=== PATIENT | female | born 1995 | race Caucasian/White ===

== ENCOUNTER 2023-12-06 19:12 | Emergency (ER) | payer SELFPAY ==
[~2023-12-06] VITALS: Ht 162.5 cm; Wt 47.6 kg
[2023-12-06] MEDS ORDERED: BUSPIRONE10 MG PO (19:42)
[2023-12-06] MEDS ORDERED: PRISTIQ ER25 MG PO (19:42)
[2023-12-06 20:20] LABS: BILIRUBIN Negative (Negative); BLOOD Negative (Negative); CLARITY Clear (Clear); COLOR Yellow (Yellow); GLUCOSE Negative (Negative); KETONE Negative (Negative); LEUKO ESTERASE Negative (Negative); NITRITE Negative (Negative); SPECIFIC GRAVITY 1.015 (1.001-1.030); UROBILINOGEN 0.2 E.U./dl (0.0-1.0)
[2023-12-06 20:26] LABS: BACTERIA 4+
[2023-12-06] MEDS ORDERED: VIBRAMYCIN100 MG PO (20:41)
[2023-12-06] MEDS ORDERED: Lidocaine Hydrochloride 2 ML IV ONE (21:00)
== END 2023-12-06 21:01 | disposition home or self-care (01) ==
LOC: ED 19:12
PROVIDERS: Physician Assistant Medical
DX: N89.8 Other specified noninflammatory disorders of vagina (principal); Z20.2 Contact with and (suspected) exposure to infections with a predominantly sexual mode of transmission; R10.2 Pelvic and perineal pain; Z79.899 Other long term (current) drug therapy

== ENCOUNTER 2024-01-10 10:30 | Emergency (ER) | payer SELFPAY ==
[~2024-01-10] VITALS: Ht 160 cm; Wt 47.6 kg
[~2024-01-10 10:30] MED LIST: BUSPIRONE10 MG PO; PRISTIQ ER25 MG PO; VIBRAMYCIN100 MG PO
[2024-01-10] MEDS ORDERED: FAMOTIDINE 50 ML IV ONE (11:00)
[2024-01-10] MEDS ORDERED: diphenhydrAMINE hydrochloride 50 MG/ML VIAL IV ONE (11:00)
[2024-01-10] MEDS ORDERED: methylPREDNISolone sod succ 125 MG VIAL IV ONE (11:00)
[2024-01-10] MEDS ORDERED: SODIUM CHLORIDE 0.9% 1,000 ML IV ONE ×2 (11:00→11:50)
[2024-01-10] MEDS ORDERED: EPINEPHrine Hydrochloride 1 MG/ML AMP IM ONE (11:10)
[2024-01-10 11:27] LABS: HEMATOCRIT 35.3 % (37.0-47.0); MEAN CELL VOLUME 86.9 fl (81.0-99.0); MEAN CORPUSCULAR HGB 30.5 pg (27.0-31.0); MEAN CORPUSCULAR HGB CONC 35.1 g/dl (33.0-37.0); RED BLOOD COUNT 4.06 10*6/uL (4.10-5.10); RED CELL DISTRI WIDTH 12.9 % (0-14.5); WHITE BLOOD COUNT 17.2 10*3/uL (4.8-10.8)
[2024-01-10] MEDS ORDERED: METHYLPRED-DP4 MG PO (11:27)
[2024-01-10 11:33] LABS: BUN 17 mg/dl (9-23); CHLORIDE 104 mmol/L (98-107); POTASSIUM 2.8 mmol/L (3.4-5.1)
[2024-01-10 11:42] LABS: MANUAL DIFF REFLEX YES; PLATELET COUNT AUTOMATED 11 10*3/uL (130-400)
[2024-01-10 11:44] LABS: TOTAL CELLS COUNTED 100 #CELLS
[2024-01-10 11:45] LABS: BURR CELLS FEW; OVALOCYTES FEW; PLATELET SUFFICIENCY LOW (NORMAL); SCHISTOCYTES FEW; TARGET CELLS FEW
[2024-01-10] MEDS ORDERED: POTASSIUM CHLORIDE 20 MEQ TAB PO ONE (12:25)
[2024-01-10] MEDS ORDERED: BENADRYL ALLERG50 MG PO (12:33)
[2024-01-10] MEDS ORDERED: PREDNISONE20 M1 PO (12:33)
== END 2024-01-10 13:03 | disposition home or self-care (01) ==
LOC: ED 10:30
PROVIDERS: Emergency Medicine
DX: L50.9 Urticaria, unspecified (principal); D69.3 Immune thrombocytopenic purpura; Z88.8 Allergy status to other drugs, medicaments and biological substances; Z98.890 Other specified postprocedural states